=== PATIENT | female | born 1980 | race African-American/Black ===

== ENCOUNTER 2024-02-28 17:38 | Emergency (ER) | payer OTHER ==
[2024-02-28 19:23] LABS: #Eosinphils 0.04 10x3/uL (0.0-0.5); #Neutrophils 5.24 10x3/uL (1.5-8.4); %Eosinophils 0.5 % (0.0-6.0); Hematocrit 46.1 % (34.9-44.5); Hemoglobin 14.9 g/dL (12.0-15.5); Mean Corpuscular HGB CONC 32.3 g/dL (32.0-36.0); Mean Corpuscular Hemoglobin 30.6 pg (27.0-33.0); Mean Corpuscular Volume 94.7 fl (81.6-98.3); Mean Platelet Volume 10.6 fl (7.4-10.4); Platelet Count 277 10x3/uL (150-450); RBC Distribution Width 15.4 % (11.5-14.5); Red Blood Cell (RBC) Count 4.87 10x6/uL (3.90-5.03); White Blood Cell (WBC) Count 7.5 10x3/uL (3.5-10.5)
[2024-02-28 19:33] LABS: ALT (SGPT) 19 U/L (8-55); AST (SGOT) 20 U/L (5-34); Acetaminophen Less than 10 mcg/mL (10.0-30.0); Albumin 4.1 g/dL (3.5-5.0); Alcohol Less than 10.0 mg/dL (Less than 10); Alkaline Phosphatase 69 U/L (40-110); Anion Gap 16 mmol/L (10-20); BUN (Urea Nitrogen) 13 mg/dL (7.0-18.7); Bilirubin, Total 0.4 mg/dL (0.2-1.2); Calc. Creatinine Clearance 0 mL/min (70-130); Calcium 9.9 mg/dL (7.8-10.44); Carbon Dioxide 23 mmol/L (22-29); Chloride 107 mmol/L (98-107); Estimated GFR 82; Globulin 3.8 g/dL (2.4-3.5); Glucose 130 mg/dL (70-105); Potassium 4.5 mmol/L (3.5-5.1); Protein, Total 7.9 g/dL (6.0-8.3); Salicylate Less than 8.0 mg/dL (15.0-30.0); Sodium 141 mmol/L (136-145)
== END 2024-02-28 22:03 | disposition home or self-care (01) ==
LOC: CSHERS 17:38
DX: F22 Delusional disorders (principal); I12.0 Hypertensive chronic kidney disease with stage 5 chronic kidney disease or end stage renal disease; E11.22 Type 2 diabetes mellitus with diabetic chronic kidney disease; N18.6 End stage renal disease
CPT/HCPCS: 36416; 80053; 80307; 85025; 99284

== ENCOUNTER 2024-08-02 21:38 | Emergency (ER) | payer OTHER ==
[2024-08-02 22:30] LABS: Hematocrit 49.4 % (34.9-44.5); Hemoglobin 16.2 g/dL (12.0-15.5); Mean Corpuscular HGB CONC 32.8 g/dL (32.0-36.0); Mean Corpuscular Hemoglobin 30.5 pg (27.0-33.0); Mean Platelet Volume 10.8 fL (7.4-10.4); Platelet Count 295 10x3/uL (150-450); RBC Distribution Width 15.6 % (11.5-14.5); Red Blood Cell (RBC) Count 5.31 10x6/uL (3.90-5.03); White Blood Cell (WBC) Count 8.3 10x3/uL (3.5-10.5)
[2024-08-02 22:38] LABS: ALT (SGPT) 25 U/L (8-55); AST (SGOT) 29 U/L (5-34); Albumin 4.8 g/dL (3.5-5.0); Alkaline Phosphatase 63 U/L (40-110); Anion Gap 21 mmol/L (10-20); BUN (Urea Nitrogen) 25 mg/dL (7.0-18.7); Bilirubin, Total 1.1 mg/dL (0.2-1.2); Calc. Creatinine Clearance 0 mL/min (70-130); Calcium 10.6 mg/dL (7.8-10.44); Carbon Dioxide 21 mmol/L (22-29); Chloride 105 mmol/L (98-107); Estimated GFR 49; Globulin 4.2 g/dL (2.4-3.5); Glucose 88 mg/dL (70-105); Potassium 4.5 mmol/L (3.5-5.1); Sodium 142 mmol/L (136-145)
[2024-08-02 22:43] LABS: Troponin I Less than 0.010 ng/mL (< 0.028)
[2024-08-02 22:56] LABS: Bilirubin Neg (Negative); Blood, Urine Negative (Negative); Clarity Slightly Cloudy (Clear); Glucose, Urine (Dipstick) Normal (Negative); Ketone, Urine 15 mg/dL (Negative); Leukocyte 25 (Negative); Nitrite Negative (Negative); Protein, Urine (Dipstick) 30 mg/dl (Neg-Trace); Specific Gravity, Urine 1.025 (1.005-1.030); Urobilinogen Normal mg/dL (Less than 2)
[2024-08-02 23:03] LABS: Lymphocytes 28 % (21-51); Monocytes 4 % (0-10); Neutrophil 63 % (42-75); Reactive Lymphocytes 5 % (0-10)
[2024-08-02 23:05] LABS: MDiff Complete? YES; Platelet Adequacy Comment Appears Adequate; RBC Morph Comment Within Normal Limits
[2024-08-02 23:14] LABS: CAUTI Indications for Culture Alt mental st,lethar; RBC/HPF 0-3 HPF (0-3); WBC/HPF 0-3 HPF (0-3)
[2024-08-02 23:15] LABS: Bacteria/HPF None Seen HPF (None Seen); Mucous/LPF 1+ LPF (<2+)
[2024-08-02 23:16] LABS: Urine Culture Reflex No No
[2024-08-02] MEDS ORDERED: Labetalol HCl 100 MG/20 ML VIAL ONE (23:40)
== END 2024-08-03 01:27 | disposition home or self-care (01) ==
LOC: CSHERS 21:38
DX: R41.82 Altered mental status, unspecified (principal); E86.0 Dehydration; Z94.83 Pancreas transplant status
CPT/HCPCS: 51701; 70450; 71045; 80053; 81001; 82140; 84484; 85025; 93005; 96374; 96376

== ENCOUNTER 2024-08-05 18:52 | Emergency (ER) | payer OTHER ==
[2024-08-05 20:38] LABS: #Basophils 0.02 10x3/uL (0.0-0.2); #Eosinphils 0.05 10x3/uL (0.0-0.5); #Neutrophils 5.27 10x3/uL (1.5-8.4); %Basophils 0.2 % (0.0-2.0); %Eosinophils 0.6 % (0.0-6.0); %Lymphocytes 24.5 % (18.0-47.0); %Monocytes 8.7 % (0.0-10.0); %Neutrophils 65.6 % (40.0-75.0); Hematocrit 50.2 % (34.9-44.5); Mean Corpuscular HGB CONC 31.9 g/dL (32.0-36.0); Mean Corpuscular Hemoglobin 29.8 pg (27.0-33.0); Mean Corpuscular Volume 93.5 fL (81.6-98.3); Mean Platelet Volume 10.4 fL (7.4-10.4); Platelet Count 249 10x3/uL (150-450); RBC Distribution Width 15.2 % (11.5-14.5); Red Blood Cell (RBC) Count 5.37 10x6/uL (3.90-5.03)
[2024-08-05 20:40] LABS: PTT 22.8 sec (22.0-33.0); Prothrombin Time 10.9 sec (9.5-12.1)
[2024-08-05 20:42] LABS: Acetaminophen Less than 10 mcg/mL (Less than 10); Alcohol Less than 10.0 mg/dL (Less than 10); Lipase 49 U/L (8-78); Magnesium 1.5 mg/dL (1.6-2.6); Salicylate Less than 8.0 mg/dL (Less than 8.0)
[2024-08-05 20:43] LABS: ALT (SGPT) 22 U/L (8-55); AST (SGOT) 30 U/L (5-34); Albumin 4.4 g/dL (3.5-5.0); Alkaline Phosphatase 60 U/L (40-110); Anion Gap 16 mmol/L (10-20); BUN (Urea Nitrogen) 18 mg/dL (7.0-18.7); Calc. Creatinine Clearance 0 mL/min (70-130); Calcium 10.4 mg/dL (7.8-10.44); Carbon Dioxide 22 mmol/L (22-29); Chloride 106 mmol/L (98-107); Estimated GFR 73; Globulin 4.2 g/dL (2.4-3.5); Glucose 112 mg/dL (70-105); Potassium 3.8 mmol/L (3.5-5.1); Protein, Total 8.6 g/dL (6.0-8.3); Sodium 140 mmol/L (136-145)
[2024-08-05 20:46] LABS: BHCG - Serum Negative (NEGATIVE); Pregs Control Background? CLEAR/WHITE (CLR/WHITE); Pregs Control Bar Appear? YES (CONTROL BAR)
[2024-08-05 20:52] LABS: Actual Bicarbonate (HCO3a) 22.8 mEq/L (22-28); Analyzer IN Cardio CS ER; Base Excess (BEa) -1.3 mEq/L (-2.0 to +3.0); CO2 Tension 36.4 mmHg (35.0-45.0); Calcium, Ionized (arterial) 1.22 mmol/L (1.12-1.30); Hematocrit-ABG 47 % (36.0-47.0); Hemoglobin (Hb) 15.9 g/dL (12.0-16.0); O2 Tension (PaO2), arterial 84.9 mmHg (80.0-100.0); Potassium - ABG Lab 3.73 mmol/L (3.70-5.30); Puncture Site Right Radial artery; pH, Arterial 7.414 (7.35-7.45)
[2024-08-05 20:55] LABS: Bilirubin 1+ (Negative); Blood, Urine Negative (Negative); Clarity Slightly Cloudy (Clear); Glucose, Urine (Dipstick) Normal (Negative); Ketone, Urine 5 mg/dL (Negative); Leukocyte 100 (Negative); Nitrite Negative (Negative); Protein, Urine (Dipstick) 30 mg/dl (Neg-Trace); Specific Gravity, Urine 1.025 (1.005-1.030)
[2024-08-05 21:03] LABS: Amphetamine Not Detected (NotDetected); Barbiturates Screen Not Detected (NotDetected); Benzodiazepine Screen Not Detected (NotDetected); Cocaine Metabolite Screen Not Detected (NotDetected); Methadone Not Detected (NotDetected); Methamphetamine Not Detected (NotDetected); Opiate Screen Not Detected (NotDetected); Oxycodone Screen Detected (NotDetected); Phencyclidine (PCP) Not Detected (NotDetected); THC/Cannabinoid Screen Not Detected (NotDetected); Tricyclic Screen Not Detected (NotDetected)
[2024-08-05 21:15] LABS: CAUTI Indications for Culture Alt mental st,lethar; RBC/HPF 0-3 HPF (0-3)
[2024-08-05 21:17] LABS: Bacteria/HPF 2+ HPF (None Seen); Mucous/LPF 2+ LPF (<2+)
[2024-08-05 21:19] LABS: Urine Culture Reflex Yes Yes
[2024-08-05] MEDS ORDERED: Magnesium 2 GM/50 ML BAG (IN WATER) ONE (21:24)
[2024-08-05] MEDS ORDERED: hydrALAZINE 20 MG/ML VIAL ONE (22:09)
[2024-08-05] MEDS ORDERED: cefTRIAXone (ROCEPHIN) 2 GM VIAL ONE (22:20)
[2024-08-06] MEDS ORDERED: Aspirin 300 MG Suppository ONE (02:16)
[2024-08-06 02:33] LABS: Troponin I 0.042 ng/mL (< 0.028)
[2024-08-06] MEDS ORDERED: hydrALAZINE 20 MG/ML VIAL ONE (05:02)
[2024-08-06] MEDS ORDERED: Lorazepam 2 MG/ML VIAL ONE ×2 (05:25→08:36)
[2024-08-06 06:50] LABS: Troponin I 0.039 ng/mL (< 0.028)
[2024-08-06] MEDS ORDERED: Morphine 2 MG/ML VIAL ONE (06:50)
== END 2024-08-06 09:16 | disposition short-term general hospital (02) ==
LOC: CSHERS 18:52
DX: R41.82 Altered mental status, unspecified (principal); N39.0 Urinary tract infection, site not specified; E83.42 Hypomagnesemia; R79.89 Other specified abnormal findings of blood chemistry; I10 Essential (primary) hypertension
CPT/HCPCS: 36600; 70450; 71045; 80306; 80307; 81001; 82140; 82805; 82962; 83605; 83690; 83735; 83880; 84145; 84484 ×2; 84703; 85610; 85730; 87040; 87077; 87086; 93005; J0360 ×2; J0696; J2060; J2272; J3475; 36415; 36416; 51702; 80053; 84443; 85025; 96374; 96375; 96376